=== PATIENT | female | born 1980 | race African-American/Black ===

== ENCOUNTER 2019-07-29 14:36 | Emergency (ER) | payer SELFPAY ==
[~2019-07-29] VITALS: Ht 157.5 cm; Wt 82.4 kg
[2019-07-29] MEDS ORDERED: TETANUS/DIPHTHERIA TOX ADULT 0.5 ML SYR IM ONE (15:00)
[2019-07-29] MEDS ORDERED: AUGMENTIN 500-1 EACH PO (15:01)
[2019-07-29] MEDS ORDERED: BACITRACIN ZINC 0.9GM TP ONE ×2 (15:01→15:15)
[2019-07-29] MEDS ORDERED: TETANUS/DIPHTHERIA TOX ADULT 0.5 ML SYR ONE (15:12)
== END 2019-07-29 15:15 | disposition home or self-care (01) ==
LOC: FSED 14:36
DX: S91.202A Unspecified open wound of left great toe with damage to nail, initial encounter (principal); W22.8XXA Striking against or struck by other objects, initial encounter; Y92.008 Other place in unspecified non-institutional (private) residence as the place of occurrence of the external cause
CPT/HCPCS: 90471; 90714; 96372; 99283